=== PATIENT | female | born 1980 | race Caucasian/White ===

== ENCOUNTER 2024-05-08 09:43 | Emergency (ER) | payer SELFPAY ==
[2024-05-08 10:46] LABS: INFLUENZA A NAA NEGATIVE (NEGATIVE); INFLUENZA B NAA NEGATIVE (NEGATIVE)
[2024-05-08] MEDS ORDERED: Amoxicillin/Clavulanate K 875-125 MG Tab ONE (11:00)
[2024-05-08 12:51] VITALS: BP 122/82; PULSE 65
[2024-05-11 11:48] LABS: CORONAVIRUS COVID-19 NAA NEGATIVE (NEGATIVE)
== END 2024-05-08 11:30 | disposition home or self-care (01) ==
LOC: LB.ED 09:43
DX: S61.252A Open bite of right middle finger without damage to nail, initial encounter (principal); Z79.899 Other long term (current) drug therapy; W55.01XA Bitten by cat, initial encounter; Y93.89 Activity, other specified
CPT/HCPCS: 0240U; 99284; A9270-GY